=== PATIENT | male | born 1990 | race Two or more races ===

== ENCOUNTER 2019-12-23 17:40 | Emergency (ER) | payer SELFPAY ==
[~2019-12-23] VITALS: Ht 170.2 cm; Wt 74.8 kg
--- NOTE | 2019-12-23 17:57 | NUR ---
ED Nurse Note: Pt brought in by RA Curtis from [facility] due to OD. Pt states he took liquor, meth and a lot of other drugs. Noted pt to be changing his story about substances he ingested. AAO x4, follows commands. No respiratory distress and no active vomiting. Noted restlessness and facial twitching.
[2019-12-23 18:00] VITALS: BP 144/75
[2019-12-23] MEDS ORDERED: LORazepam Inj 2mg/ml 1ml IV ONE (18:15)
[2019-12-23 18:25] LABS: BASOPHILS % (AUTO) 1.4 % (0.0-2.0); EOSINOPHILS % (AUTO) 0.2 % (0.0-3.0); HEMATOCRIT 52.5 % (42.0-52.0); HEMOGLOBIN 17.4 G/DL (14.2-18.0); LYMPHOCYTES % (AUTO) 12.6 % (20.0-45.0); MEAN CORPUSCULAR VOLUME 92 FL (80-99); MONOCYTES % (AUTO) 6.8 % (1.0-10.0); NEUTROPHILS % (AUTO) 79.1 % (45.0-75.0); PLATELET COUNT 271 K/UL (150-450); RED BLOOD COUNT 5.69 M/UL (4.70-6.10); RED CELL DISTRIBUTION WIDTH 13.2 % (11.6-14.8); WHITE BLOOD COUNT 8.2 K/UL (4.8-10.8)
[2019-12-23 18:27] LABS: ANION GAP 17 mmol/L (5-15); BLOOD UREA NITROGEN 24 mg/dL (7-18); CARBON DIOXIDE 25 MMOL/L (21-32); CHLORIDE 105 MMOL/L (98-107); CREATININE 1.2 MG/DL (0.55-1.30); POTASSIUM 3.5 MMOL/L (3.5-5.1); SODIUM 147 MMOL/L (136-145)
[2019-12-23 18:38] LABS: ALANINE AMINOTRANSFERASE 35 U/L (12-78); ALBUMIN 4.8 G/DL (3.4-5.0); ALBUMIN/GLOBULIN RATIO 1.3 (1.0-2.7); ALKALINE PHOSPHATASE 80 U/L (46-116); ASPARTATE AMINO TRANSFERASE 38 U/L (15-37); BILIRUBIN,TOTAL 1.1 MG/DL (0.2-1.0)
[2019-12-23 18:42] LABS: BILIRUBIN,DIRECT 0.2 MG/DL (0.0-0.3)
--- NOTE | 2019-12-23 18:45 | NUR ---
ED Nurse Note: Pt tried to walk out and was wandering in the hallway. Dr Guardado aware. RNs helped pt to get back in the bed.
--- NOTE | 2019-12-23 19:15 | NUR ---
HAND-OFF: Report given to Rebeca FAY.
--- NOTE | 2019-12-23 19:30 | NUR ---
ED Nurse Note: Recieved report from am nurse to resume care, pt sitting on side of bed, off monitoring, all sheets off bed, awake and alert, pt has rambling speech which is uncomprehensible, is figity and moving about constantly, has patent saline lock in right ac, fluids comleted, pt assisted to bathroom for urine sample, pt gave sample with water, will resume care as ordered, pt appears to be intoxicated stating he knew what he took but is not going to tell me.
--- NOTE | 2019-12-23 20:57 | Emergency Room Report ---
History of Present Illness General Chief Complaint: Overdose Source: Patient Present Illness HPI 28-year-old male presents the ED for evaluation. Brought in by EMS from [place]. Witnesses called 911 as patient was behaving erratically. Patient states that he drank alcohol and did some meth today. Denies chest pain or shortness of breath. Denies hearing voices. Denies SI or HI. No other aggravating relieving factors. Denies any other associated symptoms Allergies: Coded Allergies: No Known Allergies (Unverified , 12/24/19) Patient History Past Medical History: none Past Surgical History: none Pertinent Family History: none Social History: Reports: drug use; Denies: smoking, alcohol use Immunizations: UTD Reviewed Nursing Documentation: PMH: Agreed; PSxH: Agreed Nursing Documentation-PMH Past Medical History Deferred: Pt Cognitively Impaired Review of Systems All Other Systems: negative except mentioned in HPI Physical Exam Vital Signs Date Time Temp Pulse Resp B/P (MAP) Pulse Ox O2 Delivery O2 Flow Rate FiO2 12/23/19 17:37 98.4 136 19 153/86 (108) 96 Room Air Sp02 EP Interpretation: reviewed, normal General Appearance: no apparent distress, alert, GCS 15, non-toxic Head: normocephalic, atraumatic Eyes: bilateral eye normal inspection, bilateral eye PERRL ENT: hearing grossly normal, normal pharynx, no angioedema, normal voice Neck: full range of motion, supple/symm/no masses Respiratory: chest non-tender, lungs clear, normal breath sounds, speaking full sentences Cardiovascular #1: no edema, tachycardia Cardiovascular #2: 2+ carotid (R), 2+ carotid (L), 2+ radial (R), 2+ radial (L) , 2+ dorsalis pedis (R), 2+ dorsalis pedis (L) Gastrointestinal: normal bowel sounds, non tender, soft, non-distended, no guarding, no rebound Rectal: deferred Genitourinary: normal inspection, no CVA tenderness Musculoskeletal: back normal, normal range of motion, gait/station normal, non- tender Neurologic: alert, motor strength/tone normal, oriented x3, sensory intact, responsive, speech normal Psychiatric: judgement/insight normal, memory normal, no suicidal/homicidal ideation, no delusions, anxious Reflexes: 3+ bicep (R), 3+ bicep (L), 3+ tricep (R), 3+ tricep (L), 3+ knee (R) , 3+ knee (L) Skin: no rash Lymphatic: no adenopathy Medical Decision Making Diagnostic Impression: Primary Impression: Substance abuse ER Course Hospital Course 28-year-old M presents to ED with anxiety, agitation. admitted to meth use Differential diagnoses include: Psychosis, EtOH, drug abuse Clinical course patient placed on stretcher. On monitor technician. After initial history and physical ordered labs, IV fluids, ativan Labs reviewed-electrolytes okay, no leukocytosis, hemoglobin/hematocrit stable Made multiple attempts to leave but unsteady on gait. Encouraged to stay and sober up. Patient observed on monitor technician with stable vitals. Initially tachycardic improving with IV fluids and Ativan. Patient now safe for discharge. Did not wait for discharge papers. Pulled out his IV and walked out. i. I feel this is a highly complex case requiring extensive working including EKG/Rhythm strip, Xray/CT/US, Blood/urine lab work, repeat exams while in ED, and administration of strong opiates/narcotics for pain control, admission to hospital or close patient follow up. Diagnosis - substance abuse Stable and discharged to home. Followup with PMD. Return to ED if symptoms recur or worsen Labs Test 12/23/19 18:00 White Blood Count 8.2 K/UL (4.8-10.8) Red Blood Count 5.69 M/UL (4.70-6.10) Hemoglobin 17.4 G/DL (14.2-18.0) Hematocrit 52.5 % (42.0-52.0) Mean Corpuscular Volume 92 FL (80-99) Mean Corpuscular Hemoglobin 30.6 PG (27.0-31.0) Mean Corpuscular Hemoglobin Concent 33.2 G/DL (32.0-36.0) Red Cell Distribution Width 13.2 % (11.6-14.8) Platelet Count 271 K/UL (150-450) Mean Platelet Volume 7.8 FL (6.5-10.1) Neutrophils (%) (Auto) 79.1 % (45.0-75.0) Lymphocytes (%) (Auto) 12.6 % (20.0-45.0) Monocytes (%) (Auto) 6.8 % (1.0-10.0) Eosinophils (%) (Auto) 0.2 % (0.0-3.0) Basophils (%) (Auto) 1.4 % (0.0-2.0) Sodium Level 147 MMOL/L (136-145) Potassium Level 3.5 MMOL/L (3.5-5.1) Chloride Level 105 MMOL/L (98-107) Carbon Dioxide Level 25 MMOL/L (21-32) Anion Gap 17 mmol/L (5-15) Blood Urea Nitrogen 24 mg/dL (7-18) Creatinine 1.2 MG/DL (0.55-1.30) Estimat Glomerular Filtration Rate > 60 mL/min (>60) Glucose Level 92 MG/DL (74-106) Calcium Level 10.0 MG/DL (8.5-10.1) Total Bilirubin 1.1 MG/DL (0.2-1.0) Direct Bilirubin 0.2 MG/DL (0.0-0.3) Aspartate Amino Transf (AST/SGOT) 38 U/L (15-37) Alanine Aminotransferase (ALT/SGPT) 35 U/L (12-78) Alkaline Phosphatase 80 U/L (46-116) Total Protein 8.5 G/DL (6.4-8.2) Albumin 4.8 G/DL (3.4-5.0) Globulin 3.7 g/dL Albumin/Globulin Ratio 1.3 (1.0-2.7) Salicylates Level 0.9 ug/mL (2.8-20) Acetaminophen Level < 2 MCG/ML (10-30) Serum Alcohol < 3 mg/dL EKG Diagnostic Results Rate: tachycardiac Rhythm: NSR ST Segments: no acute changes ASA given to the pt in ED: No Rhythm Strip Diag. Results EP Interpretation: yes Rhythm: NSR, no PVC's, no ectopy Last Vital Signs Date Time Temp Pulse Resp B/P (MAP) Pulse Ox O2 Delivery O2 Flow Rate FiO2 12/23/19 18:00 98.6 122 16 144/75 99 Room Air Status: improved Disposition: HOME, SELF-CARE Condition: Stable Scripts Unable to Obtain Active Prescriptions or Reported Meds Chester Guardado MD Dec 23, 2019 20:57
--- NOTE | 2019-12-23 21:45 | NUR ---
ER DISCHARGE NOTE: Patient is cleared to be discharged per ERMD, pt is aox4, on room air, with stable vital signs. pt was given dc and prescription instructions, pt was able to verbalize understanding, pt id band and iv site removed without complications. pt is able to ambulate with steady gait. pt took all belongings. pt is more alert and oriented and calming, pt asking to go, pt recalls address, md aware and pt left without signing d/c papers.
[2019-12-23 21:50] VITALS: BP 144/75
--- NOTE | 2019-12-24 10:46 | Diagnostic Imaging Report ---
Indication: Chest pain Technique: One view of the chest Comparison: none Findings: Lungs and pleural spaces are clear. Heart size is normal. Impression: No acute process
== END 2019-12-23 21:50 | disposition home or self-care (01) ==
LOC: EDBD 17:40 → EMR 18:00
DX: F15.10 Other stimulant abuse, uncomplicated (principal); F17.200 Nicotine dependence, unspecified, uncomplicated; Z72.89 Other problems related to lifestyle
CPT/HCPCS: 36415; 71045; 80053; 82248; 85025; 93005; 96361; 96374; 99284; G0480; J7030

== ENCOUNTER 2019-12-24 03:11 | Emergency (ER) | payer SELFPAY ==
[~2019-12-24] VITALS: Ht 170.2 cm; Wt 72.6 kg
[2019-12-24 03:15] VITALS: BP 142/76
--- NOTE | 2019-12-24 03:15 | NUR ---
ED Nurse Note: Pt brought in by [facility] 69 for c/o abdominal and chest pain onset [employer]. Per EMS, pt was found knocking on a home door and did not know the residents. Pt was seen here in the ED yesterday for similar complaint. Pt admits to using drugs, unknown. Pt is aaox3, no respiratory or cardiac distress noted. Pt appears to be under the influence of drugs.
--- NOTE | 2019-12-24 03:19 | Emergency Room Report ---
History of Present Illness General Chief Complaint: Behavioral Complaint Source: Patient (Mila Kurtz DO) Present Illness HPI Patient was here earlier admitted to doing drugs Was found to have a packet of methamphetamines with him Patient had apparently walked out of the emergency room At this time was again brought in by paramedics patient reports that he is very tired denies any headache denies any chest pain Denies any auditory or visual hallucinations denies any suicidal thoughts (Mila Kurtz DO) Allergies: Coded Allergies: No Known Allergies (Unverified , 12/24/19) Patient History Past Medical History: see triage record Reviewed Nursing Documentation: PMH: Agreed; PSxH: Agreed (Mila Kurtz DO) Nursing Documentation-PMH Past Medical History: No Stated History (KylahclarisseMila ) Review of Systems All Other Systems: negative except mentioned in HPI (Mila Kurtz DO) Physical Exam Vital Signs Date Time Temp Pulse Resp B/P (MAP) Pulse Ox O2 Delivery O2 Flow Rate FiO2 12/24/19 03:10 97.5 110 18 142/76 (98) 98 Room Air Sp02 EP Interpretation: reviewed, normal General Appearance: well appearing, no apparent distress Head: normocephalic, atraumatic Eyes: bilateral eye PERRL, bilateral eye EOMI ENT: hearing grossly normal, normal pharynx, TMs + canals normal, uvula midline Neck: full range of motion, supple, no meningismus, no bony tend Respiratory: lungs clear, normal breath sounds, no rhonchi, no respiratory distress, no retraction, no accessory muscle use Cardiovascular #1: normal peripheral pulses, regular rate, rhythm, no edema, no gallop, no JVD, no murmur Gastrointestinal: normal bowel sounds, non tender, soft, no mass, no organomegaly, non-distended, no guarding, no hernia, no pulsatile mass, no rebound Genitourinary: no CVA tenderness Musculoskeletal: normal inspection Neurologic: motor strength/tone normal, mercury recoverer III-XII nml as tested, oriented x3 , sensory intact, responsive Psychiatric: mood/affect normal Skin: no rash Lymphatic: normal inspection, no adenopathy (Mila Kurtz DO) Medical Decision Making Diagnostic Impression: Primary Impression: Drug abuse ER Course Upon arrival the patient reports that he had done methamphetamine earlier he feels anxious and would like to rest He feels tired patient was allowed to rest he slept throughout the night during my shift Patient is pending further sobering and close outpatient follow-up (Mila Kurtz DO) ER Course Reevaluation 7:40 AM, patient is sober, patient went given urine cup attempted to fill it with water Patient most likely with acute intoxication, patient earlier was found with white powder Patient is now sober disposition home with return precautions follow-up with PCP patient counseled on drug abuse (Jose Alfredo Mark MD) Last Vital Signs Date Time Temp Pulse Resp B/P (MAP) Pulse Ox O2 Delivery O2 Flow Rate FiO2 12/24/19 03:10 97.5 110 18 142/76 (98) 98 Room Air Status: improved (Mila Kurtz DO) Disposition: HOME, SELF-CARE Condition: Stable Scripts Unable to Obtain Active Prescriptions or Reported Meds Referrals: [facility] Patient Instructions: Drug Overdose Additional Instructions: Patient is provided with the discharge instructions notified to follow up with primary doctor in the next 2-3 days otherwise return to the er with any worsening symptoms. Please note that this report is being documented using DRAGON technology. This can lead to erroneous entry secondary to incorrect interpretation by the dictating instrument. The patient was provided with discharge instructions, notified to follow-up with a primary care doctor and or specialist in the next 24-48 hours, and to return to the ED if they have worsening of their symptoms. Please note that this report is being documented using DRAGON technology. This can lead to erroneous entry secondary to incorrect interpretation by the dictating instrument. Mila Kurtz DO Dec 24, 2019 03:19 Jose Alfredo Mark MD Dec 24, 2019 07:42
--- NOTE | 2019-12-24 06:30 | NUR ---
ED Nurse Note: Pt is awake and appears paranoid, pacing around room. Pt states he is not ready to go home at this time. Will continue to monitor.
--- NOTE | 2019-12-24 07:38 | NUR ---
Note kyrie in EDM - 12/24/19 at 0742 by UMANG ER DISCHARGE NOTE: Patient is cleared to be discharged per ERMD, pt is aox4, on room air, with stable vital signs. pt was given dc and prescription instructions, pt was able to verbalize understanding, pt id band removed. pt is able to ambulate with steady gait. pt took all belongings. Pt notified about seeing PMD in 1-2 days.
--- NOTE | 2019-12-24 07:43 | NUR ---
ED Nurse Note: Pt attempted to urinate for sample. Pt filled urine cup with water and gave it to RN. notified.
--- NOTE | 2019-12-24 07:49 | NUR ---
ER DISCHARGE NOTE: Patient is cleared to be discharged per ERMD, pt is aox4, on room air, with stable vital signs. pt was given dc and prescription instructions, pt was able to verbalize understanding, pt id band removed. pt is able to ambulate with steady gait. pt took all belongings.
[2019-12-24 07:50] VITALS: BP 132/71
== END 2019-12-24 07:51 | disposition home or self-care (01) ==
LOC: EDBD 03:11 → EMR 03:22
DX: F15.10 Other stimulant abuse, uncomplicated (principal)
CPT/HCPCS: 99282